=== PATIENT | male | born 1990 | race Caucasian/White ===

== ENCOUNTER 2018-09-20 06:29 | Day surgery (SDC) | payer OTHER ==
[2018-09-20] VITALS (13 sets, daily range): BP systolic 112–131; BP diastolic 70–91; PULSE 63–98; RESP 12–21; Ht 177.8 cm; Wt 109.1 kg
[~2018-09-20] VITALS: Ht 177.8 cm; Wt 109.1 kg
[2018-09-20] MEDS ORDERED: LACTATED RINGER'S 1,000 ML IV SCH (08:30)
[2018-09-20] MEDS ORDERED: CIPROFLOXACIN HCL OTIC DROP 0.25 ML ONE (10:09)
[2018-09-20] MEDS ORDERED: NEOMYC/POLYMYX/HC 10 ML OTIC SUSP ONE (10:09)
--- NOTE | 2018-09-20 10:18 | PREAC ---
Date/Time of Note Date/Time of Note DATE: 09/20/18 TIME: 10:17 Anesthesia Eval and Record Evaluation Time Pre-Procedure Interview DATE: 09/20/18 TIME: 10:17 Age 28 Sex male NPO: 8 hrs Preoperative diagnosis otitis media Planned procedure bilateral myringotomy with ear tubes Past Medical History Past Medical History: Includes GI: Obesity Surgery & Anesthesia Issues No known issue Meds Anticoagulation: No Beta Shruti within 24 hr: No Reason Beta Shruti not given: Pt. not on B-Shruti No Active Prescriptions or Reported Meds Current Medications Lactated Ringer's 1,000 ml @ 25 mls/hr Q24H IV Last administered on 09/20/18at 08:57; Admin Dose 25 MLS/HR; Start 09/20/18 at 08:30 Meds reviewed: Yes Allergies Coded Allergies: No Known Allergy (Unverified , 09/20/18) Allergies Reviewed: Yes Labs/Studies Labs Reviewed: Reviewed by anesthesiologist test: N/A Pre-procedure Exam Last vitals Vital Signs Date Temp Pulse Resp B/P (MAP) Pulse Ox O2 O2 Flow FiO2 Time Delivery Rate 09/20/18 97.1 63 16 122/88 100 Room Air 08:30 (99) Airway: Adequate mouth opening, Adequate thyromental dist Mallampati: Mallampati II Teeth: Normal Lung: Normal Heart: Normal ASA Physical Status ASA physical status: 2 Emergency: None Planned Anesthetic General/MAC: LMA Planned Pain Management Parenteral pain med Pre-operative Attestations Prior to commencing anesthesia and surgery, the patient was re-evaluated, there was verification of: *The patient's identity *The results of appropriate recent lab work and preoperative vital signs *The above evaluation not changing prior to induction *Anesthetic plan, risk benefits, alternative and complications discussed with patient/family; questions answered; patient/family understands, accepts and wishes to proceed. ABBIE OSEI Sep 20, 2018 10:18
[2018-09-20] MEDS ORDERED: PROPOFOL 20 ML ONE (10:34)
[2018-09-20] MEDS ORDERED: FENTAnyl 50 MCG/ML VIAL ONE (10:35)
[2018-09-20] MEDS ORDERED: LIDOCAINE 2% (SDV) 5 ML INJ ONE (11:00)
--- NOTE | 2018-09-20 11:04 | HPN ---
Date/Time of Note Date/Time of Note DATE: 09/20/18 TIME: 11:04 Interval H&P Admission Note Pt. seen H&P reviewed: No system changes KATHARINA RODRIGUES M.D. Sep 20, 2018 11:04
--- NOTE | 2018-09-20 11:08 | OPR ---
Date/Time of Note Date/Time of Note DATE: 09/20/18 TIME: 11:05 Operative Report Procedure Date: Sep 20, 2018 Preoperative Diagnosis 1. CHRONIC OTITIS MEDIA. AU 2. HEARING LOSS AU. 3. ETD AU. 4. TINNITUS AU. Postoperative Diagnosis SAME. Operation/Procedure Performed 1. BILATERAL M/T WITH .045 PAPARELLA TYPE TUBES. Surgeon see signature line Electronic Assembler NONE. Anesthesia Type: general (WITH LMA PLACEMENT.) Estimated Blood Loss: 0 - 10 ml's Transfusion none Specimen NONE. Grafts/Implants none Tubes/Drains NONE. Complications none Pt Condition Post Procedure: stable Disposition: PACU Indications TO RID INFECTION AND IMPROVE HEARING. Procedure Description SEE DICTATED OPERATIVE REPORT. KATHARINA RODRIGUES M.D. Sep 20, 2018 11:08
--- NOTE | 2018-09-20 11:09 | PDOCDIS ---
Discharge Instructions DIAGNOSIS Discharge Diagnosis 1. CHRONIC OTITIS MEDIA. AU 2. HEARING LOSS AU. 3. ETD AU. 4. TINNITUS AU. CONDITION [id number] Patient Condition: [id number] Good HOME CARE INSTRUCTIONS: [id number] Diet Instructions: [id number] Regular ACTIVITY: [id number] Activity Restrictions: [id number] Slowly Increase Activity Rest between Activity Avoid heavy lifting FOLLOW UP/APPOINTMENTS Follow-up Plan MY OFFICE IN 10 TO 14 DAYS. SCHOOL/WORK RELEASE May return to School/Work on: Sep 23, 2018 May return to School/Work with: No Restrictions ( ) KATHARINA RODRIGUES M.D. Sep 20, 2018 11:09
--- NOTE | 2018-09-20 11:18 | PAC ---
Date/Time of Note Date/Time of Note DATE: 09/20/18 TIME: 11:17 Post-Anesthesia Notes Post-Anesthesia Note Last documented vital signs Vital Signs Date Temp Pulse Resp B/P (MAP) Pulse Ox O2 O2 Flow FiO2 Time Delivery Rate 09/20/18 97.1 63 16 122/88 100 Room Air 1118 (99) Activity: WNL Respiratory function: WNL Cardiovascular function: WNL Mental status: Baseline Pain reasonably controlled: Yes Hydration appropriate: Yes Nausea/Vomiting absent: Yes ABBIE OSEI Sep 20, 2018 11:18
[2018-09-20] MEDS ORDERED: FENTAnyl 50 MCG/ML VIAL IV PRN ×3 (11:30)
[2018-09-20] MEDS ORDERED: MEPERIDINE 25 MG INJ IV PRN (11:30)
[2018-09-20] MEDS ORDERED: DIPHENHYDRAMINE 50 MG INJ IV PRN (11:30)
[2018-09-20] MEDS ORDERED: OXYCODONE/ACETAMINOPHEN (5/325) TAB PO PRN ×2 (11:30)
[2018-09-20] MEDS ORDERED: hydrALAzine 20 MG INJ IV PRN (11:30)
[2018-09-20] MEDS ORDERED: ONDANSETRON 4 MG INJ IV PRN (11:30)
[2018-09-20] MEDS ORDERED: ALBUTEROL 0.083% (NEB) 2.5 MG/3 ML AMP HHN PRN (11:30)
[2018-09-20] MEDS ORDERED: LABETALOL HCL 20MG INJ IV PRN (11:30)
[2018-09-20] MEDS ORDERED: EPHEDrine 25 MG/5 ML SYG IV PRN (11:30)
[2018-09-20] MEDS ORDERED: MIDAZOLAM 1 MG/ML 2 ML INJ IV PRN (11:30)
--- NOTE | 2018-09-20 14:28 | OPR ---
DATE OF OPERATION: 09/20/2018 SURGEON: Petar Youssef MD PREOPERATIVE DIAGNOSES: 1. Chronic otitis media with effusion. 2. Eustachian tube dysfunction bilaterally. 3. Conductive hearing loss bilaterally. 4. History of tinnitus bilaterally. POSTOPERATIVE DIAGNOSES: 1. Chronic otitis media with effusion. 2. Eustachian tube dysfunction bilaterally. 3. Conductive hearing loss bilaterally. 4. History of tinnitus bilaterally. OPERATION PERFORMED: Bilateral myringotomy PE tube insertion procedure using 0.045 Paparella type tu bes. ESTIMATED BLOOD LOSS: Less than 1 mL. COMPLICATIONS: No complications. SPECIMENS: No specimens sent to the lab. INDICATIONS: Mr. Gonzalo Wilkins is a 28-year-old male who has a history of loud tinnitu s in the left ear greater than right. The patient has been found to have middle ear effusions on cli nical examination. The patient is currently scheduled for today's procedure which includes bilateral myringotomy and PE tube insertion procedure as indicated. Risks, benefits, and alternatives have be en explained thoroughly to Mr. Wilkins. Risks include infection, bleeding, scar formation. There are no guarantees that his tinnitus will be resolved by this current procedure. He also understands the risks of general and local anesthetic agents and their possible reactions. He signed a consent f or the procedure. All his questions were answered. FINDINGS DURING PROCEDURE: Bilateral mucopurulent material in middle ear space with chronic changes of the [place]. No signs of cholesteatomas, tumors or tympanic membrane perforation during the pr ocedure. ANESTHETIC USED: General anesthesia with LMA tube placement. DESCRIPTION OF PROCEDURE: The patient was taken the operating room, placed on the surgical table in supine position, made comfortable by the anesthesiologist. The patient had EKG, saturation monitor a nd blood pressure cuff applied. At this point, the patient was then given mask inhalation agents, pl aced asleep gently. The patient had a previously started IV in the preinduction area which was infus ing well. The patient was given IV sedation before he was placed under general anesthesia. LMA tube was placed inside the oral cavity and position inflated and the patient was ventilated succes sfully through the LMA. At this point, the head was then turned slightly to the left to allow access to the right ear. The patient was draped out in usual sterile fashion with a split sheet as a brief time-out with patient identification and procedures entertained, and all were in agreement. At this point, a Zeiss microscope with a 250 mm multifocal lens brought to the operating room field. A spec ulum was placed inside the right external auditory canal and the tympanic membrane brought into micro scopic focus. The right tympanic membrane appeared to be dull with middle ear effusion seen in the m iddle ear space. A myringotomy site was chosen in the anterior inferior quadrant, then made through all 3 layers of tympanic membrane. At this point, the mucopurulent material removed from the middle ear space with a #5 and #7 microsuction. A 0.045 Paparella type tube was then placed inside the myri ngotomy site on the right ear as it was stabilized. Cortisporin otic suspension was placed inside th e right ear with cotton to follow to stabilize drops. The left ear was done in a similar fashion. I t too had mucopurulent material in middle ear space removed with microsuction. The PE tube was then placed in the left ear as well. This ended the procedure. Sponge count and instrument count was cor rect x3. There were no complications during the procedure. The patient was then taken back to the r ecovery room where he is expected to be discharged home unless postoperative complications develop. Dictated By: PETAR MATOS/CHRISTOPH Conf#: [id number] DID#: [id number]
== END 2018-09-20 13:10 | disposition home or self-care (01) ==
LOC: SDS 06:29
PROVIDERS: ATTEND Otolaryngology Otolaryngology/Facial Plastic Surgery
DX: H65.493 Other chronic nonsuppurative otitis media, bilateral (principal); H69.83 Other specified disorders of Eustachian tube, bilateral; H90.2 Conductive hearing loss, unspecified
CPT/HCPCS: 69436; C1889; J3010; Z7512; Z7610

== ENCOUNTER 2018-11-29 10:58 | Emergency (ER) | payer SELFPAY ==
[~2018-11-29] VITALS: Ht 175.3 cm; Wt 90.0 kg
[2018-11-29 11:01] VITALS: BP 145/94; PULSE 92; RESP 18; Ht 175.3 cm; Wt 90.0 kg
== END 2018-11-29 12:57 | disposition left against medical advice (07) ==
LOC: E/R 10:58 → FTE 12:57
DX: Z53.21 Procedure and treatment not carried out due to patient leaving prior to being seen by health care provider (principal)